=== PATIENT | male | born 1955 | race Caucasian/White ===

== ENCOUNTER → 2016-07-26 | Outpatient (CLI) | payer BC ==
[~2016-07-26] MED LIST: B COMPLEX & B121 TAB PO; CARDURA2 MG PO; NOVOLOG 100U100 U/ML SQ
== END ==
LOC: COL.VAS 12:30
DX: I72.8 Aneurysm of other specified arteries (principal)

== ENCOUNTER → 2016-07-31 | Outpatient (CLI) | payer BC | LOC: COL.RAD 10:49 | DX: I72.0 Aneurysm of carotid artery (principal); E04.1 Nontoxic single thyroid nodule; M47.892 Other spondylosis, cervical region; I69.398 Other sequelae of cerebral infarction | CPT/HCPCS: Q9967 ==

== ENCOUNTER 2018-01-24 18:18 | Inpatient (IN) | payer BC ==
[~2018-01-24] VITALS: Ht 170.2 cm; Wt 73.8 kg
[2018-01-24] VITALS (98 sets, daily range): BP systolic 111; BP diastolic 67; PULSE 97; TEMP 97.4; O2SAT 93–99
[2018-01-24 18:51] LABS: BASO % 0.3 % (0.0-2.0); EOS # 0.1 (0.0-0.7); EOS % 1.7 % (0-4.0); GRAN # 3.8 (1.4-6.5); GRAN % 65.9 % (42.2-75.2); HEMATOCRIT 45.7 % (42.0-52.0); HEMOGLOBIN 15.8 g/dl (13.5-18.0); LYMPH # 1.4 (1.2-3.4); LYMPH % 23.4 % (20.0-51.0); MEAN CELL VOLUME 88 fl (80.0-100.0); MEAN CORPUSCULAR HEMOGLOBIN 30 pg (27.0-31.0); MEAN CORPUSCULAR HGB CONC 35 g/dl (33.0-37.0); MONO # 0.5 (0.1-0.6); MONO % 8.5 % (1.7-9.3); PLATELET COUNT 190 K/mm3 (130-400); RED BLOOD COUNT 5.21 M/mm3 (4.20-5.60); REDCELL DISTRIBUTION WIDTH-CV 13.5 % (11.5-14.5)
[2018-01-24 18:52] LABS: INR 2.4 (0.8-3.0); PROTHROMBIN TIME 27.2 SECONDS (9.7-12.8)
[2018-01-24 18:55] LABS: PARTIAL THROMBOPLASTIN TIME 48.6 SECONDS (26.0-37.0)
[2018-01-24 18:57] LABS: ALBUMIN 4.3 gm/dL (3.5-5.0); BILIRUBIN,TOTAL 0.9 mg/dL (0.0-1.0); CALCIUM 9.3 mg/dL (8.4-10.2); CREATININE, serum 1.4 mg/dL (0.66-1.25); POTASSIUM 3.5 mmol/L (3.4-5.0); TOTAL PROTEIN 6.9 gm/dL (6.4-8.2)
[2018-01-24 19:09] LABS: TROPONIN-I 0.015 ng/mL (0.000-0.034)
[2018-01-24] MEDS ORDERED: MINOXIDIL 2.5 PO (19:09)
[2018-01-24] MEDS ORDERED: THEO-24 20200 MG/CAP PO (19:11)
[2018-01-24] MEDS ORDERED: COUMADIN 1010 MG/TAB PO (19:12)
[2018-01-24] MEDS ORDERED: CYANOCOBAL1000 MCG/1 SQ (19:13)
[2018-01-24] MEDS ORDERED: PROVENTIL0.09 MG/A1 IH (19:15)
[2018-01-24] MEDS ORDERED: ANDROGEL1.62PKT2 TOP (19:16)
[2018-01-24] MEDS ORDERED: NITROSTAT0.4 MG/TAB SL (19:17)
[2018-01-24] MEDS ORDERED: MASON NATURAL2000 IU PO (19:26)
[2018-01-24 22:12] LABS: COLLECTION METHOD CLEAN CATCH
[2018-01-24 22:17] LABS: MUCOUS Present /lpf; PH 6 (5-8); SQUAMOUS EPITHELIAL None Seen /hpf; URINE APPEARANCE Clear; URINE BACTERIA None Seen /hpf; URINE BILIRUBIN Negative (NEGATIVE); URINE BLOOD 1+ (NEGATIVE); URINE COLOR Straw; URINE GLUCOSE Negative (NEGATIVE); URINE KETONE Trace (NEGATIVE); URINE LEUKOCYTE ESTERASE Negative (NEGATIVE); URINE NITRATE Negative (NEGATIVE); URINE PROTEIN(semi-quant) Negative (NEGATIVE); URINE RBC 0-2 /hpf; URINE UROBILINOGEN Negative (NEGATIVE)
[2018-01-25] VITALS (491 sets, daily range): BP systolic 91–123; BP diastolic 63–82; PULSE 69–79; TEMP 97.5–99.7; O2SAT 73–100
[2018-01-25 05:48] LABS: BASO % 0.2 % (0.0-2.0); EOS # 0.1 (0.0-0.7); EOS % 2.5 % (0-4.0); GRAN # 2.5 (1.4-6.5); GRAN % 61.9 % (42.2-75.2); HEMATOCRIT 39.6 % (42.0-52.0); LYMPH # 1.1 (1.2-3.4); LYMPH % 27.1 % (20.0-51.0); MEAN CELL VOLUME 87 fl (80.0-100.0); MEAN CORPUSCULAR HEMOGLOBIN 30 pg (27.0-31.0); MEAN CORPUSCULAR HGB CONC 35 g/dl (33.0-37.0); MEAN PLATELET VOLUME 10.3 fl (7.4-10.4); MONO # 0.3 (0.1-0.6); MONO % 8.1 % (1.7-9.3); PLATELET COUNT 171 K/mm3 (130-400); RED BLOOD COUNT 4.54 M/mm3 (4.20-5.60); REDCELL DISTRIBUTION WIDTH-CV 13.7 % (11.5-14.5)
[2018-01-25 05:51] LABS: INR 3.3 (0.8-3.0); PROTHROMBIN TIME 37.9 SECONDS (9.7-12.8)
[2018-01-25 05:52] LABS: HEMOGLOBIN 13.8 g/dl (13.5-18.0)
[2018-01-25 06:02] LABS: CALCIUM 8.2 mg/dL (8.4-10.2); CREATININE, serum 1.31 mg/dL (0.66-1.25); POTASSIUM 3.8 mmol/L (3.4-5.0)
[2018-01-25 06:13] LABS: TROPONIN-I 0.078 ng/mL (0.000-0.034)
[2018-01-26 05:19] VITALS: BP 102/58; PULSE 70; TEMP 98.3
[2018-01-26 07:54] VITALS: BP 101/60; PULSE 75; TEMP 97.8
[2018-01-26 11:12] VITALS: BP 106/66; PULSE 60; TEMP 97.9
[2018-01-26 16:54] VITALS: BP 116/76; PULSE 64; TEMP 97.7
[2018-01-26 19:05] VITALS: BP 109/70; PULSE 76; TEMP 98.3
[2018-01-27 00:39] VITALS: BP 100/53; PULSE 69; TEMP 98.3
[2018-01-27 03:17] VITALS: BP 97/52; PULSE 61; TEMP 97.7
[2018-01-27 07:07] LABS: INR 4.9 (0.8-3.0)
[2018-01-27 07:14] LABS: PROTHROMBIN TIME 55.3 SECONDS (9.7-12.8)
[2018-01-27 07:17] LABS: CALCIUM 8.6 mg/dL (8.4-10.2); CREATININE, serum 1.27 mg/dL (0.66-1.25); POTASSIUM 3.6 mmol/L (3.4-5.0)
[2018-01-27 08:11] VITALS: BP 111/66; PULSE 67; TEMP 98
[2018-01-27] MEDS ORDERED: BETAPACE 80MG80 MG PO (11:59)
== END 2018-01-27 12:53 | disposition home or self-care (01) | DRG 281 ==
LOC: COL.ER 18:18 → ICU 19:47 → MEDICAL 01-25 13:05
PROVIDERS: Emergency Medicine; Internal Medicine; Nurse Practitioner Family
DX: I48.0 Paroxysmal atrial fibrillation (principal); I21.A1 Myocardial infarction type 2; I20.1 Angina pectoris with documented spasm; Z79.01 Long term (current) use of anticoagulants; K90.0 Celiac disease; E11.22 Type 2 diabetes mellitus with diabetic chronic kidney disease; N18.9 Chronic kidney disease, unspecified; Z86.73 Personal history of transient ischemic attack (TIA), and cerebral infarction without residual deficits; I08.0 Rheumatic disorders of both mitral and aortic valves
CPT/HCPCS: 99223-AI; 99232-AI; 99239; J3420; J7030

== ENCOUNTER 2024-04-24 13:13 | Emergency (ER) | payer MEDICARE ==
[~2024-04-24] VITALS: Ht 170.2 cm; Wt 61.4 kg
[~2024-04-24 13:13] MED LIST changes: +ANDROGEL1.62PKT2 TOP; +BETAPACE 80MG80 MG PO; +COUMADIN 1010 MG/TAB PO; +CYANOCOBAL1000 MCG/1 SQ; +MASON NATURAL2000 IU PO; +MINOXIDIL 2.5 PO; +NITROSTAT0.4 MG/TAB SL; +PROVENTIL0.09 MG/A1 IH; +THEO-24 20200 MG/CAP PO
[2024-04-24] MEDS ORDERED: Acetaminophen 500 MG TAB PO ONE (14:15)
[2024-04-24] MEDS ORDERED: NS 500 ML IV ONE (14:15)
[2024-04-24 14:19] LABS: BASO % 0.2 % (0.0-2.0); EOS # 0.1 K/mm3 (0.0-0.7); EOS % 1.3 % (0.0-4.0); GRAN # 5.3 K/mm3 (1.4-6.5); GRAN % 84.4 % (42.2-75.2); HEMOGLOBIN 15.7 g/dl (13.5-18.0); LYMPH # 0.3 K/mm3 (1.2-3.4); LYMPH % 5.1 % (20.0-51.0); MEAN CELL VOLUME 92 fl (80.0-100.0); MEAN CORPUSCULAR HEMOGLOBIN 31 pg (27-31); MEAN CORPUSCULAR HGB CONC 34 g/dl (33.0-37.0); MEAN PLATELET VOLUME 11.2 fl (7.4-10.4); MONO # 0.5 K/mm3 (0.1-0.6); MONO % 8.7 % (1.7-9.3); PLATELET COUNT 125 K/mm3 (130-400); REDCELL DISTRIBUTION WIDTH-CV 12.8 % (11.5-14.5)
[2024-04-24 14:20] VITALS: TEMP 102.4
[2024-04-24 14:36] LABS: ALBUMIN 3.7 g/dL (3.4-4.8); CALCIUM 9.4 mg/dL (8.4-10.2); CREATININE, serum 1.36 mg/dL (0.72-1.25); POTASSIUM 3.8 mEq/L (3.5-4.5); TOTAL PROTEIN 6.3 g/dl (6.2-8.1)
[2024-04-24 14:42] LABS: TROPONIN-I 0.012 ng/mL (0.00-0.033)
[2024-04-24 14:44] LABS: BILIRUBIN,TOTAL 0.4 mg/dL (0.2-1.2)
[2024-04-24 15:34] LABS: COLLECTION METHOD CLEAN CATCH
[2024-04-24 15:48] LABS: PH 5.5 (5.0-8.5); URINE APPEARANCE CLEAR (CLEAR/HAZY); URINE BLOOD NEGATIVE (NEGATIVE); URINE COLOR YELLOW (YELLOW); URINE GLUCOSE NEGATIVE (NEGATIVE); URINE KETONE NEGATIVE (NEGATIVE); URINE NITRATE NEGATIVE (NEGATIVE); URINE PROTEIN(semi-quant) TRACE (NEGATIVE); URINE UROBILINOGEN 0.2 E.U/dL (0.2-1.0)
[2024-04-24 16:40] VITALS: BP 149/52; PULSE 90
== END 2024-04-24 16:45 | disposition home or self-care (01) ==
LOC: COL.ER 13:13
PROVIDERS: Personal Emergency Response Attendant
DX: R50.9 Fever, unspecified (principal); R00.0 Tachycardia, unspecified; Z91.040 Latex allergy status
CPT/HCPCS: J7040